=== PATIENT | female | born 1970 | race Caucasian/White ===

== ENCOUNTER → 2022-07-08 12:58 | Outpatient (BNVA) | payer OTHER, SELFPAY | PROVIDERS: Visit Provider Internal Medicine | DX: S43.402A Unspecified sprain of left shoulder joint, initial encounter (principal); V43.01XA Car driver injured in collision with sport utility vehicle in nontraffic accident, initial encounter | CPT/HCPCS: 73030; 99203 ==

== ENCOUNTER → 2022-07-21 13:50 | Outpatient (BNVA) | payer OTHER, SELFPAY | PROVIDERS: Visit Provider Physician Assistant Medical | DX: S43.402D Unspecified sprain of left shoulder joint, subsequent encounter (principal); V43 Car occupant injured in collision with car, pick-up truck or van | CPT/HCPCS: 99213 ==

== ENCOUNTER → 2022-07-29 13:23 | Outpatient (BNVA) | payer OTHER, SELFPAY | PROVIDERS: Visit Provider Physician Assistant Medical | DX: S43.402D Unspecified sprain of left shoulder joint, subsequent encounter (principal); V89.0XXD Person injured in unspecified motor-vehicle accident, nontraffic, subsequent encounter | CPT/HCPCS: 99213 ==

== ENCOUNTER → 2022-08-11 10:10 | Outpatient (BNVA) | payer OTHER, SELFPAY | PROVIDERS: Visit Provider Physician Assistant Medical | DX: S43.402D Unspecified sprain of left shoulder joint, subsequent encounter (principal); V43 Car occupant injured in collision with car, pick-up truck or van | CPT/HCPCS: 99213 ==

== ENCOUNTER → 2022-09-02 12:03 | Outpatient (BNVA) | payer OTHER, SELFPAY | PROVIDERS: PCP Internal Medicine; Visit Provider Physician Assistant Medical | DX: S43.402D Unspecified sprain of left shoulder joint, subsequent encounter (principal); V43 Car occupant injured in collision with car, pick-up truck or van | CPT/HCPCS: 99213 ==

== ENCOUNTER → 2022-09-25 11:07 | Outpatient (BNVA) | payer OTHER, SELFPAY | PROVIDERS: PCP Internal Medicine; Visit Provider Physician Assistant | DX: S43.402D Unspecified sprain of left shoulder joint, subsequent encounter (principal); V43 Car occupant injured in collision with car, pick-up truck or van | CPT/HCPCS: 99214 ==

== ENCOUNTER → 2022-10-16 08:58 | Outpatient (BNVA) | payer OTHER, SELFPAY | PROVIDERS: PCP Internal Medicine; Visit Provider Physician Assistant | DX: M25.512 Pain in left shoulder (principal) | CPT/HCPCS: 99213 ==

== ENCOUNTER 2022-10-18 10:44 | Outpatient (REF) | payer OTHER, SELFPAY ==
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
== END 2022-10-18 10:45 | disposition home or self-care (01) ==
LOC: HO.MRI 10:44
PROVIDERS: PCP Internal Medicine; Visit Provider Internal Medicine
DX: S46.012A Strain of muscle(s) and tendon(s) of the rotator cuff of left shoulder, initial encounter (principal)
CPT/HCPCS: 73221

== ENCOUNTER → 2022-10-23 09:36 | Outpatient (BNVA) | payer OTHER, SELFPAY | PROVIDERS: PCP Internal Medicine; Visit Provider Physician Assistant | DX: S43.402D Unspecified sprain of left shoulder joint, subsequent encounter (principal); V43 Car occupant injured in collision with car, pick-up truck or van | CPT/HCPCS: 99213 ==

== ENCOUNTER 2022-10-27 11:00 | Outpatient (RCR) | payer OTHER, SELFPAY ==
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
== END 2022-12-04 10:45 | disposition home or self-care (01) ==
LOC: HO.PT 11:00
PROVIDERS: PCP Internal Medicine; Visit Provider Physician Assistant Medical
DX: M25.512 Pain in left shoulder (principal)
CPT/HCPCS: 97035; 97110; 97140; 97161; 97164; 97530

== ENCOUNTER 2022-11-06 10:22 | Outpatient (AMB) | payer OTHER, SELFPAY ==
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
[2022-11-06 10:30] VITALS: BMI 26.5
== END 2022-11-06 11:02 | disposition home or self-care (01) ==
PROVIDERS: PCP Internal Medicine; Visit Provider Physician Assistant
DX: M75.102 Unspecified rotator cuff tear or rupture of left shoulder, not specified as traumatic (principal)
CPT/HCPCS: 99204

== ENCOUNTER → 2022-11-06 10:22 | Outpatient (BNVA) | payer OTHER, SELFPAY | PROVIDERS: PCP Internal Medicine; Visit Provider Physician Assistant | DX: S46.012A Strain of muscle(s) and tendon(s) of the rotator cuff of left shoulder, initial encounter (principal); V43.52XA Car driver injured in collision with other type car in traffic accident, initial encounter; Y93.F9 Activity, other caregiving; Y92.9 Unspecified place or not applicable; Y99.0 Civilian activity done for income or pay | CPT/HCPCS: 99202 ==

== ENCOUNTER 2022-12-03 09:42 | Day surgery (SDC) | payer OTHER, SELFPAY ==
[2022-12-01 11:13] VITALS: BMI 26.5
--- NOTE | 2022-12-02 09:18 | HO.ANESPROP2 ---
Documented by User: Maureen Lyman NP 12/02/22 09:22 HPI - Anesthesia Eval Consult details Narrative: 51yo F for Left Arthroscopic Rotator Cuff Repair PMFSH Active Problems Active Problems: All Active Problems (Updated 11/06/22 @ 10:46 by Khadijah Abrams) Left rotator cuff tear (Acute) Dog bite of left lower leg (Acute) Past Medical History Medical History Bilateral cataracts Social History Social History Alcohol intake: former Patient Tobacco Use Status: Former Tobacco user Use of substances other than those prescribed or required for medical reasons: No Are you DNR?: No Advance Directives: No Advance Directives Information Provided: Yes Current occupational status: employed 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, 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 Meds Allergies Allergy/AdvReac Type Severity Reaction Status Date / Time No Known Allergies Allergy Verified 11/06/22 10:28 Home Medications Medication Instructions Recorded Confirmed Last Taken Type clozapine 100 mg tablet 300 mg PO BEDTIME 11/26/21 12/03/22 Unknown History fluoxetine 20 mg capsule 40 mg PO QPM 11/26/21 12/03/22 Unknown History Exam Exam Date and Time: December 02, 2022 0918 Height,Weight and Vital Signs: Height 5 ft 2 in Weight 65.771 kg Assessment and Plan Assessment Anesthesia Assessment: Chart Reviewed Documented by User: Fide Mata MD 12/03/22 10:32 [facility] Past Medical History Medical History Bilateral cataracts Family History Family history of problems with anesthesia: No Surgical History History of Problems with Anesthesia: No Social History Social History Alcohol intake: former Patient Tobacco Use Status: Former Tobacco user Use of substances other than those prescribed or required for medical reasons: No Are you DNR?: No Advance Directives: No Advance Directives Information Provided: Yes Current occupational status: employed 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, 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 Meds Allergies Allergy/AdvReac Type Severity Reaction Status Date / Time No Known Allergies Allergy Verified 11/06/22 10:28 Home Medications Medication Instructions Recorded Confirmed Last Taken Type clozapine 100 mg tablet 300 mg PO BEDTIME 11/26/21 12/03/22 Unknown History fluoxetine 20 mg capsule 40 mg PO QPM 11/26/21 12/03/22 Unknown History Exam Airway Mallampati Class: II TM Dist: >3cm Neck ROM: Full Heart: rrr Lungs: cta Assessment and Plan Assessment Anesthesia Assessment: Anesthesia Plan Discussed Final Anesthetic Review Family History of Problems with Anesthesia: No History of Problems with Anesthesia: No NPO: Yes ASA Class: II Final Preanesthetic Review: No Changes in Pt Med Stat, Meds/Allgs Chart Reviewed, Consent Obtained/Reviewed and Anes Risks/Benef Reviewed Patient Risk: Intermediate Procedure Risk: Low Anesthetic Plan Anesthetic Plan: GA and Regional Block Disposition: Standard PACU
[2022-12-03] VITALS (9 sets, daily range): BP systolic 143–173; BP diastolic 93–105; PULSE 88–100; RESP 16–20; TEMP 36.3–36.4; O2SAT 95–100
[2022-12-03] MEDS: Lactated Ringers 1,000 ML 100 ML IVCONT (10:36)
--- NOTE | 2022-12-03 14:05 | P.BOP_ITS ---
Brief Operative Note Date of Service: 12/03/22 Pre-op diagnosis: Left rtc tear Post-op diagnosis: same Procedure: Left RTC repair Surgeon: Renny Moore MD Anesthesia: GETA and regional Was an Mechanical Integrity Specialist used for this Procedure?: No Estimated blood loss (mL): 25 IV fluids (mL): 1,000 Pathology: none sent Condition: stable Disposition: PACU
--- NOTE | 2022-12-08 12:39 | P.OP_ITS ---
Operative Note Operative Note Date of Service: 12/03/22 Narrative: Pre-op diagnosis: Left rtc tear Post-op diagnosis: same Procedure: Left RTC repair Surgeon: Renny Moore MD Anesthesia: GETA and regional Was an Strip Stamp Straightener used for this Procedure?: No Estimated blood loss (mL): 25 IV fluids (mL): 1,000 Pathology: none sent Condition: stable Disposition: PACU Procedure in detail: Patient was brought to the operating room and placed the the beach chair position. All bony prominences were well padded and the limb was prepped and draped in standard sterile fashion. A time out was called to identify proper site, proper procedure and proper surgeon. IV antibiotics per weight were administered. I began by making a posterolateral stab incision with a 15 blade. A blunt trochar was placed into the glenohumeral joint and I insufflated the joint with saline and a 30 degree arthroscope was placed. I established an outside- in anterior portal just distal to the biceps tendon. I then began my inspection of the glenohumeral joint. There was synovitis of the anterior interval. The biceps was intact and the labral anchor was intact. There was no tearing of the labrum circumferentially. The glenoid and humeral head cartilaginous surfaces were normal. There was a full thickness undersurface RTC tear. The subcapularis was intact. I then removed the trochar and entered the subacromial space. A direct lateral portal was then established and I performed a bursectomy. The cuff was then examined. There was a full thickness tear of the supra and infraspinatus without retraction. The tear was mobile. I then placed two medial row double loaded anchors and then brought the suture tape through the medial cuff. I then debrided the bare area down to bleeding bone and, using a cross bridge configuration, brought three limbs to each of two lateral 5.0 anchors. This re- approximated the cuff anatomy near anatomically. I then performed a 5 mm subacromial decompression. Once I was satisfied with the repair final images were captured and I removed all instrumentation. Portals were closed with nylon. Patient was placed in an abduction sling, extubated and brought to the recovery room in stable condition. There were no known complications.
== END 2022-12-03 15:02 | disposition home or self-care (01) ==
LOC: HO.SSS 09:43
PROVIDERS: PCP Internal Medicine; Visit Provider Orthopaedic Surgery
PROC: (CPT 29827; principal; 2022-12-03 12:10)
DX: M75.102 Unspecified rotator cuff tear or rupture of left shoulder, not specified as traumatic (principal); Z79.899 Other long term (current) drug therapy; Z87.891 Personal history of nicotine dependence; V89.2XXA Person injured in unspecified motor-vehicle accident, traffic, initial encounter; Y93.89 Activity, other specified; Y92.410 Unspecified street and highway as the place of occurrence of the external cause; Y99.0 Civilian activity done for income or pay
CPT/HCPCS: 29827; 29826; C1713; J0171; J0690; J1100; J2250; J2371; J2405

== ENCOUNTER → 2022-12-03 09:42 | Outpatient (BNV) | payer OTHER, SELFPAY | PROVIDERS: PCP Internal Medicine; Visit Provider Orthopaedic Surgery | DX: S46.011A Strain of muscle(s) and tendon(s) of the rotator cuff of right shoulder, initial encounter (principal) | CPT/HCPCS: 29826; 29827 ==

== ENCOUNTER 2022-12-12 10:19 | Outpatient (AMB) | payer OTHER, SELFPAY ==
--- NOTE | 2022-12-12 10:31 | MHC.OFFVIS ---
Intake Intake Visit Reasons: PO - Left Shoulder w/ RTC Repair 12/03/22 Intake Note: Oxana is a 51 year old left hand dominant female who presents today for her post op appointment s/p Left Shoulder w/ RTC Repair 12/03/22 NE. Patient reports she is doing well, no pain or discomfort. Allergies No Known Allergies Allergy (Verified 12/12/22 10:32) HPI PO - Left Shoulder w/ RTC Repair 12/03/22 HPI Details 51-year-old left hand dominant female who presents in the office today 1 week status post left shoulder rotator cuff repair, which was performed on 12/03/[address] Moore. The patient reports she is doing well with no pain or discomfort while in the office today. She confirms coming out of sling 3 times a day to allow the shoulder to hang. She states she has been taking the Tylenol. She reports she has not had to take the oxycodone. She is accompanied in the office today by her . 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 Sutures intact. No surrounding erythema or drainage. No signs of infection. Forward flexion and abduction to 45 degrees. External rotation to neutral. NVI. Assessment & Plan Assessment & Plan (1) S/P left rotator cuff repair: Comment: 12/03/2022 NE Code(s): Z98.890 - Other specified postprocedural states Plan Ms. Jones is a 51-year-old left hand dominant female who presents in the office today 1 week status post left shoulder rotator cuff repair, which was performed on 12/03/[address] Moore. The patient reports she is doing well with no pain or discomfort while in the office today. She confirms coming out of sling 3 times a day to allow the shoulder to hang. She states she has been taking the Tylenol. She reports she has not had to take the oxycodone. She is accompanied in the office today by her . Sutures were removed and steri-stripes were applied. The patient reports she started physical therapy on 12/16/2022. I educated her she will work on gentle ROM. Follow up will be in 4 weeks, or sooner if needed. Patient Instructions: Scribed for Rere Roberto PA-C by Khadijah Abrams medical office representative, on 12/12/2022 at 10:23 am, EST. Coding Level of Care Code Global (50031) Diagnoses S/P left rotator cuff repair Z98.890
== END 2022-12-12 11:21 | disposition home or self-care (01) ==
PROVIDERS: PCP Internal Medicine; Visit Provider Physician Assistant
DX: Z98.890 Other specified postprocedural states (principal)
CPT/HCPCS: 99024

== ENCOUNTER → 2022-12-12 10:19 | Outpatient (BNVA) | payer OTHER, SELFPAY | PROVIDERS: PCP Internal Medicine; Visit Provider Physician Assistant ==

== ENCOUNTER 2022-12-18 09:11 | Outpatient (AMB) | payer OTHER, SELFPAY ==
--- NOTE | 2022-12-18 09:13 | A.OFFVIS_ITS ---
Intake Intake Visit Reasons: s/p 12/03/22 LT RTC increased redness at op site Intake Note: Oxana a 51 year old female who presents today for a post operative wound check s/p left RTC on 12/03/22. Patient reports she is doing well, mild pain. She has redness at her operation site. Allergies No Known Allergies Allergy (Verified 12/18/22 09:18) HPI s/p 12/03/22 LT RTC increased redness at op site HPI Details 51-year-old female who returns to [facility] for post-op wound check for left RTC repair, 12/03/22. She states she has mild pain and c/o redness at the operation site. She is doing well otherwise and has no concerns today. 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 There is some erythema around the portal side along the distal clavicle, however there is no open wound or drainage, no tenderness to palpation. NVI. Assessment & Plan Assessment & Plan (1) S/P left rotator cuff repair: Comment: 12/03/2022 [place] Code(s): Z98.890 - Other specified postprocedural states Plan No evidence of infection at this time. If worsening redness or pain develops, she will contact the office for another evaluation, otherwise she will continue with physical therapy as planned and follow-up as scheduled for routine post-op appointment. Patient Instructions: Scribed for Vicente Hernandez PA-C, by Petar Benedict medical staff services manager, on 12/18/2022 at 9:15 AM EST. I, Vicente Hernandez PA-C, have personally reviewed and agree with the information entered by the scribe. Coding Level of Care Code Global (32197) Diagnoses S/P left rotator cuff repair Z98.890
== END 2022-12-18 09:35 | disposition home or self-care (01) ==
PROVIDERS: PCP Internal Medicine; Visit Provider Physician Assistant
DX: Z98.890 Other specified postprocedural states (principal)
CPT/HCPCS: 99024

== ENCOUNTER → 2022-12-18 09:11 | Outpatient (BNVA) | payer OTHER, SELFPAY | PROVIDERS: PCP Internal Medicine; Visit Provider Physician Assistant ==

== ENCOUNTER 2023-01-09 10:21 | Outpatient (AMB) | payer OTHER, SELFPAY ==
--- NOTE | 2023-01-09 10:25 | A.OFFVIS_ITS ---
Intake Intake Visit Reasons: PO - Left Shoulder w/ RTC Repair 12/03/22 Intake Note: Oxana a 51 year old female who presents today for a post operative wound check s/p left RTC on 12/03/22. Patient reports having pain in her shoulder. Physical therapy is going well and showing improvements. Allergies No Known Allergies Allergy (Verified 01/09/23 10:26) HPI PO - Left Shoulder w/ RTC Repair 12/03/22 HPI Details 52-year-old female who presents in the o ffice today 1 month status post left shoulder rotator cuff repair, which was performed on 12/03/[address] Moore. The patient reports pain in her shoulder. She states physical therapy is going well and showing improvement. 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 No signs of infection. Forward flexion and abduction 70 de grees. Able to reach back pocket. NVI. Assessment & Plan Assessment & Plan (1) S/P left rotator cuff repair: Comment: 12/03/2022 NE Code(s): Z98.890 - Other specified postprocedural states Plan Ms. Jones is a 52-year-old female who presents in the office today 1 month status post left shoulder rotator cuff repair, which was performed on 12/03/[address] Moore. The patient reports pain in her shoulder. She states physical therapy is going well and showing improvement. The patient was placed back into the sling while in the office today. She will discontinue the use of the sling on Thursday01/14/2023. She will continue to work with physical therapy. Follow up will be in 6 weeks, or sooner if needed. Patient Instructions: Scribed for Rere Roberto PA-C by Khadijah Abrams medical program specialist, on 01/09/2023 at 10:23 am, EST. Coding Level of Care Code Global (53110) Diagnoses S/P left rotator cuff repair Z98.890
== END 2023-01-09 10:42 | disposition home or self-care (01) ==
PROVIDERS: PCP Internal Medicine; Visit Provider Physician Assistant
DX: Z98.890 Other specified postprocedural states (principal)
CPT/HCPCS: 99024

== ENCOUNTER → 2023-01-09 10:21 | Outpatient (BNVA) | payer OTHER, SELFPAY | PROVIDERS: PCP Internal Medicine; Visit Provider Physician Assistant ==

== ENCOUNTER 2023-02-20 09:51 | Outpatient (AMB) | payer OTHER, SELFPAY ==
--- NOTE | 2023-02-20 10:00 | A.OFFVIS_ITS ---
Intake Intake Visit Reasons: OV-Left Shoulder w/ RTC Repair 12/03/22 Intake Note: Oxana a 51 year old female who presents today for a post operative wound check s/p left RTC on 12/03/22. Patient reports she is doing okay still having pain. She states that PT is going well and she has been doing the exercises at home too. Allergies No Known Allergies Allergy (Verified 02/20/23 10:05) HPI OV-Left Shoulder w/ RTC Repair 12/03/22 HPI Details 52-year-old female who presents in the o ffice today 2 month status post left shoulder rotator cuff repair, which was performed on 12/03/[address] Moore. The patient reports she is doing okay, but still has some pain. She states physical therapy is going well and she has been working on her exercises at home too. 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 External rotation to 45 degrees. Able to reach T12. NVI. Assessment & Plan Assessment & Plan (1) S/P left rotator cuff repair: Comment: 12/03/2022 NE Code(s): Z98.890 - Other specified postprocedural states Plan Ms. Jones is a 52-year-old female who presents in the office today 2 month status post left shoulder rotator cuff repair, which was performed on 12/03/[address] Moore. The patient reports she is doing okay, but still has some pain. She states physical therapy is going well and she has been working on her exercises at home too. The patient will continue to work with physical therapy. She will remain out of work until follow up. Follow up will be in 6 weeks, or sooner if needed. Patient Instructions: Scribed for Rere Roberto PA-C by Khadijah Abrams medical physics professor, on 02/20/2023 at 9:53 am, EST. Coding Level of Care Code Global (92760) Diagnoses S/P left rotator cuff repair Z98.890
== END 2023-02-20 10:43 | disposition home or self-care (01) ==
PROVIDERS: PCP Internal Medicine; Visit Provider Physician Assistant
DX: Z98.890 Other specified postprocedural states (principal)
CPT/HCPCS: 99024

== ENCOUNTER → 2023-02-20 09:51 | Outpatient (BNVA) | payer OTHER, SELFPAY | PROVIDERS: PCP Internal Medicine; Visit Provider Physician Assistant ==

== ENCOUNTER 2023-04-03 09:47 | Outpatient (AMB) | payer OTHER, SELFPAY ==
--- NOTE | 2023-04-03 09:53 | A.OFFVIS_ITS ---
Intake Intake Visit Reasons: OV-Left Shoulder w/ RTC Repair 12/03/22 Intake Note: Oxana is a 51 year old female who presents today for a follow up s/p left RTC on 12/03/22. Patient reports she is doing well, however she is feeling pain after PT and home exercises. Allergies No Known Allergies Allergy (Verified 04/03/23 09:59) HPI OV-Left Shoulder w/ RTC Repair 12/03/22 HPI Details 52-year-old female who presents in the o ffice today 2 month status post left shoulder rotator cuff repair, which was performed on 12/03/[address] Moore. I last saw the patient in the office on 02/20/2023 at which time she was asked to continue to work with physical therapy and she was to remain out of work until follow up. While in the office today the patient reports she is overall doing well. She states she feels pain after physical therapy and home exercises. 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 External rotation to 45 degrees. Able to reach T12. NVI. Assessment & Plan Assessment & Plan (1) S/P left rotator cuff repair: Comment: 12/03/2022 NE Code(s): Z98.890 - Other specified postprocedural states Plan Ms. Jones is a 52-year-old female who presents in the office today 2 month status post left shoulder rotator cuff repair, which was performed on 12/03/[address] Moore. I last saw the patient in the office on 02/20/2023 at which time she was asked to continue to work with physical therapy and she was to remain out of work until follow up. While in the office today the patient reports she is overall doing well. She states she feels pain after physical therapy and home exercises. The patient will continue to work with physical therapy and begin to transition to the strengthening program to work on work stimulation activities which include lifitng. Once she feels comfortable with the work stimulation activities she will contact the office and I will give her a return to work note with any restrictions she may need. Follow up will be in 6-8 weeks, or sooner if needed. Patient Instructions: Scribed for Rere Roberto PA-C by Khadijah Abrams medical care evaluation specialist, on 04/03/2023 at 9:49 am, EST. Coding Level of Care Code Est Pt Level 3 (33378) Diagnoses S/P left rotator cuff repair Z98.890
== END 2023-04-03 10:12 | disposition home or self-care (01) ==
PROVIDERS: PCP Internal Medicine; Visit Provider Physician Assistant
DX: S46.011D Strain of muscle(s) and tendon(s) of the rotator cuff of right shoulder, subsequent encounter (principal)
CPT/HCPCS: 99213

== ENCOUNTER → 2023-04-03 09:47 | Outpatient (BNVA) | payer OTHER, SELFPAY | PROVIDERS: PCP Internal Medicine; Visit Provider Physician Assistant | DX: Z47.89 Encounter for other orthopedic aftercare (principal) | CPT/HCPCS: 99212 ==

== ENCOUNTER 2023-04-28 09:00 | Outpatient (RCR) | payer OTHER, SELFPAY ==
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
--- NOTE | 2023-06-24 10:50 | MHC.PT.DC ---
[facility] [place] [facility] [place] [facility] [place] Office [address] Jeremiah Wilson [address] [phone] F: [phone] F: [phone] F: [phone] F: [phone] Physical Therapy Discharge Report Diagnosis: L RTC Repair 12/03/22 Date of Surgery: 12/03/22 Date of Evaluation: 12/16/22 Date of Discharge: 06/24/23 Treatments to Date: 27 Cancellations to Date: 1 No Shows to Date: 0 Discharge Status: Achieved Goals Improved Function Independent with HEP Discharge Summary: Pt has met goals at this time and has been working toward increasing lifting tolerance for RTW. Pt with improvement in functional tolerance without fatigue and significantly decreased compensation since start of PT. D/C at this time to I with HEP pt will f/u with WC and ortho in regards to RTW. Electronically signed by: Laura Smith PT Please sign and return to therapist. Thank you for your referral.
== END 2023-06-24 10:51 | disposition home or self-care (01) ==
LOC: HO.PT 09:00
PROVIDERS: PCP Internal Medicine; Visit Provider Physician Assistant
DX: M75.102 Unspecified rotator cuff tear or rupture of left shoulder, not specified as traumatic (principal)
CPT/HCPCS: 97110; 97140; 97162; 97530

== ENCOUNTER 2023-05-19 08:00 | Outpatient (AMB) | payer OTHER, SELFPAY ==
--- NOTE | 2023-05-19 08:07 | MHC.OFFVIS ---
Intake Vital Signs 05/19/23 08:10 Height 5 ft 2 in Weight 150 lb BMI 27.4 Handedness Left Intake Visit Reasons: OV-Left Shoulder w/ RTC Repair 12/03/22 Intake Note: Oaxna is a 51 year old female who presents today for a follow up s/p left RTC on 12/03/22. Patient reports still feeling soreness on her left shoulder. She states that PT went well she is showing improvements on her lifting/strengthening. No other concerns for today. Allergies No Known Allergies Allergy (Verified 05/19/23 08:07) HPI OV-Left Shoulder w/ RTC Repair 12/03/22 HPI Details 52-year-old female who presents in the office today 5 month status post left shoulder rotator cuff repair, which was performed on 12/03/[address] Moore. I last saw the patient in the office on 04/03/2023 where she encouraged to continue to work with physical therapy and transition to the strengthening program. While in the office today she reports having soreness in the left shoulder. She states physical therapy went well and she is showing signs of improvement on lifting and strengthening. 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 External rotation to 45 degrees. Able to reach T12. NVI. Assessment & Plan Assessment & Plan (1) S/P left rotator cuff repair: Comment: 12/03/2022 NE Code(s): Z98.890 - Other specified postprocedural states Plan Ms. Jones is a 52-year-old female who presents in the office today 5 month status post left shoulder rotator cuff repair, which was performed on 12/03/[address] Moore. I last saw the patient in the office on 04/03/2023 where she encouraged to continue to work with physical therapy and transition to the strengthening program. While in the office today she reports having soreness in the left shoulder. She states physical therapy went well and she is showing signs of improvement on lifting and strengthening. I would like for the patient to resume physical therapy to work on strengthening, work conditioning and gradual weight training with a goal of being able to lift 30 pound bag, as this would stimulate at 30 pound bag at work. She was given an out of work note until her follow up. Follow up will be in 6 weeks, or sooner if needed. Orders: Orders PT Evaluation and Treatment Today Z98.890 - Other specified postprocedural states Patient Instructions: Scribed by Khadijah Abrams remote medical coder, for Rere Roberto PA-C on 05/19/2023 at 8:00 am, EST. Coding Level of Care Code Est Pt Level 3 (46048) Diagnoses S/P left rotator cuff repair Z98.890
[2023-05-19 08:10] VITALS: BMI 27.4
== END 2023-05-19 08:32 | disposition home or self-care (01) ==
PROVIDERS: PCP Internal Medicine; Visit Provider Physician Assistant
DX: S46.011D Strain of muscle(s) and tendon(s) of the rotator cuff of right shoulder, subsequent encounter (principal); Z04.2 Encounter for examination and observation following work accident
CPT/HCPCS: 99213

== ENCOUNTER → 2023-05-19 08:00 | Outpatient (BNVA) | payer OTHER, SELFPAY | PROVIDERS: PCP Internal Medicine; Visit Provider Physician Assistant | DX: Z47.89 Encounter for other orthopedic aftercare (principal) | CPT/HCPCS: 99212 ==

== ENCOUNTER 2023-06-30 12:45 | Outpatient (AMB) | payer OTHER, SELFPAY ==
--- NOTE | 2023-06-30 12:47 | MHC.OFFVIS ---
Intake Intake Visit Reasons: OV-Left Shoulder w/ RTC Repair 12/03/22 Intake Note: Oxana is a 52 year old female who presents today for a follow up s/p left RTC on 12/03/22. Patient reports - . She states that her strength is better since she has been going to physical therapy. Allergies No Known Allergies Allergy (Verified 06/30/23 12:48) HPI OV-Left Shoulder w/ RTC Repair 12/03/22 HPI Details 52-year-old female who presents in the office today 7 month status post left shoulder rotator cuff repair, which was performed on 12/03/[address] Moore. I last saw the patient in the office on 05/19/2023 at which time I encouraged her to resume physical therapy to work on strengthening. She was given an out of work note until her follow up. While in the office today the patient reports her strength has improved since attending physical therapy. 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 NVI. Assessment & Plan Assessment & Plan (1) S/P left rotator cuff repair: Comment: 12/03/2022 NE Code(s): Z98.890 - Other specified postprocedural states Plan Ms. Jones is a 52-year-old female who presents in the office today 7 month status post left shoulder rotator cuff repair, which was performed on 12/03/[address] Moore. I last saw the patient in the office on 05/19/2023 at which time I encouraged her to resume physical therapy to work on strengthening. She was given an out of work note until her follow up. While in the office today the patient reports her strength has improved since attending physical therapy. 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 A note was provided for her to do so beginning on Thursday07/06/2023. Follow up will be PRN, or sooner if needed. Patient Instructions: Scribed by Khadijah Abrams medical technician assistant, for Rere Roberto PA-C on 06/30/2023 at 12:48 pm, EST. Coding Level of Care Code Est Pt Level 3 (61262) Diagnoses S/P left rotator cuff repair Z98.890
== END 2023-06-30 13:25 | disposition home or self-care (01) ==
PROVIDERS: PCP Internal Medicine; Visit Provider Physician Assistant
DX: S46.011D Strain of muscle(s) and tendon(s) of the rotator cuff of right shoulder, subsequent encounter (principal)
CPT/HCPCS: 99212

== ENCOUNTER → 2023-06-30 12:45 | Outpatient (BNVA) | payer OTHER, SELFPAY | PROVIDERS: PCP Internal Medicine; Visit Provider Physician Assistant | DX: Z47.89 Encounter for other orthopedic aftercare (principal) | CPT/HCPCS: 99212 ==

== ENCOUNTER 2023-10-01 10:09 | Emergency (ER) | payer OTHER, SELFPAY ==
--- NOTE | 2023-10-01 | ECG_ITS ---
Test Reason : chest pain Blood Pressure : / mmHG Vent. Rate : 096 BPM Atrial Rate : 096 BPM P-R Int : 138 ms QRS Dur : 078 ms QT Int : 360 ms P-R-T Axes : 039 050 048 degrees QTc Int : 454 ms Normal sinus rhythm Normal ECG No previous ECGs available Referred By: Generic ED Physician Electronically Signed By:Riley Will
--- NOTE | ~2023-10-01 | XR_ITS ---
EXAMINATION: XR CHEST CLINICAL INFORMATION: Chest pain COMPARISON: Left shoulder radiographs 07/08/2022 TECHNIQUE: 2 views of the chest were obtained. FINDINGS: Aside from some mild degenerative changes in the spine, no significant abnormality is noted involving the heart, lungs, mediastinum, bony thorax or soft tissues. There is a radiopaque structure overlying the left shoulder which was not present on the prior exam which has the appearance of a suture anchor. XR/XR chest 2V IMPRESSION: 1. No acute intrathoracic disease. 2. Suture anchor overlying the left shoulder.
[2023-10-01 10:34] VITALS: BP 129/84; PULSE 96; RESP 16; TEMP 36.1; O2SAT 98; BMI 26.9
[2023-10-01 11:15] LABS: MANUAL DIFF FLAG NO
[2023-10-01 11:17] LABS: Basophils Absolute Auto 0.1 X10*3/uL (0.0-0.2); Basophils Percent Auto 0.8 % (0-2); Eosinophils Absolute Auto 0.2 X10*3/uL (0.0-0.4); Eosinophils Percent Auto 2.5 % (0-4); Hematocrit 44.3 % (37.0-47.0); Hemoglobin 15.2 g/dl (12.0-16.0); Imm Gran Abs Auto 0.02 X10*3/uL (0.00-0.03); Imm Gran Pct Auto 0.3 % (0.0-0.4); Lymphocytes Absolute Auto 1.3 X10*3/uL (1.2-4.9); Lymphocytes Percent Auto 21.3 % (20-40); Mean Corpuscular HGB Conc 34.3 g/dl (31.0-35.0); Mean Corpuscular Volume 81.6 fL (80.0-98.0); Mean Platelet Volume 9.1 fL (9.4-12.3); Monocytes Absolute Auto 0.4 X10*3/uL (0.1-1.2); Monocytes Percent Auto 6.3 % (2-11); Neutrophils Absolute Auto 4.3 x10*3/uL (2.0-8.3); Neutrophils Percent Auto 68.8 % (45-73); Platelet Count 256 X10*3/uL (160-400); Red Blood Count 5.43 X10*6/uL (4.20-5.50); Red Cell Distribution Width 13.7 % (11.0-16.0); White Blood Count 6.3 X10*3/uL (4.8-10.8)
[2023-10-01 11:30] LABS: Alanine Aminotransferase 15 U/L (0-31); Albumin Level 4.2 g/dL (3.5-5.0); Alkaline Phosphatase 109 U/L (39-117); Anion Gap 11 (12-20); Aspartate Amino Transferase 16 U/L (5-31); Bilirubin Total 0.4 mg/dL (0.0-1.0); Blood Urea Nitrogen 9 mg/dL (9-16); Calcium 9.3 mg/dL (8.4-10.2); Carbon Dioxide 26 mmol/L (22-29); Chloride 108 mmol/L (96-108); Creatinine Clr Calc Pharmacy 71.1; Estimated Glomerular Filt Rate > 60; Glucose Random 99 mg/dL (60-115); Potassium 4.1 mmol/L (3.3-5.1); Sodium 141 mmol/L (135-145)
--- NOTE | 2023-10-01 11:32 | ED_ITS ---
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 No associated n/v dyspnea it is worse with movements no fevers or cough, not worse with deep breaths MD complaint: chest pain Onset (ago): day(s) (5) Timing of current episode: episodic Prior episodes: No Onset: other (movement) Pain location: right chest Pain radiation: none Severity: mild Quality: tightness Relieving factors: rest Exacerbating factors: palpation and movement Context: trauma/injury (possible at work) Treatment prior to arrival: none Related Data Home Medications ?Medication ?Instructions ?Recorded ?Confirmed clozapine 100 mg tablet 300 mg PO BEDTIME 11/26/21 12/03/22 Previous Rx's ?Medication ?Instructions ?Recorded docusate sodium 100 mg capsule 100 mg PO DAILY #30 caps 10/01/23 ([facility]) Allergies Allergy/AdvReac Type Severity Reaction Status Date / Time No Known Allergies Allergy Verified 10/01/23 10:36 Review of Systems 2 Review of Systems: Constitutional : No Weight loss, No Fever, No Chills ENT/Mouth : No sore throat, No Rhinorrhea Eyes: No Eye Pain, No Swelling Cardiovascular : pos Chest Pain, no SOB, no Dyspnea on Exertion, No Orthopnea, No Edema, No Palpitations Respiratory : No Cough, No Sputum Gastrointestinal : no Nausea, No Vomiting, No Diarrhea, No abdominal Pain, No Hematochezia, No Melena Genitourinary : No Dysuria, No Urinary Frequency Musculoskeletal : No joint pain, No Myalgias, No Joint Swelling Skin : No Skin Lesions, No rash Neuro : No Weakness, No Numbness, No Dizziness, No Headache Psych : No Anxiety/Panic, No Depression All other systems reviewed and are negative [facility] Past Medical History Attestation statement: The following information was validated with the patient. 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 Oriented X3. No acute distress. Eyes: Pupils equal, round and reactive to light. ENT: Pharynx normal. Neck: Normal inspection. Neck supple. CVS: Normal heart rate and rhythm. Pulses normal. Chest: ttp along R anterior chest wall reproduces pain no rash Respiratory: No respiratory distress. Breath sounds normal. Abdomen: Soft and nontender. Skin: Skin warm and dry. Normal skin color. Normal skin turgor. Extremities: No lower extremity edema. No calf ttp Neuro: Oriented X 3. No motor deficit. No sensory deficit. Medical Decision Making Medical Decision Making [facility] Narrative: 52 yo female with PMH of bipolar disorder, constipation here with c/o atypical reproduceable CWP at this time will need troponin x 1, EKG, CXR not pleuritic no hypoxia no signs of DVT or symptoms suggestive of VTE. Seems MSK in nature. She has chronic constipation and asked me to help her with bowel regimen no abdominal pain or signs of SBO will start on stool softeners and probiotic OTC Differential Diagnosis Differential Diagnoses: The differential diagnosis associated with the presentation includes MSK pain, atypical chest pain Admission/Observation Consideration of admission/observation: Escalation of care including admission/observation considered negative workup atypical symptoms stable for DC Lab Data [facility] Lab Attestation statement: I reviewed the patient's lab results. 10/01/23 11:09 10/01/23 11:09 Labs: Lab Results 10/01/23 Range/Units 11:09 WBC 6.3 (4.8-10.8) X10*3/uL RBC 5.43 (4.20-5.50) X10*6/uL Hgb 15.2 (12.0-16.0) g/dl Hct 44.3 (37.0-47.0) % MCV 81.6 (80.0-98.0) fL MCH 28.0 (27.0-33.0) pg MCHC 34.3 (31.0-35.0) g/dl RDW 13.7 (11.0-16.0) % Plt Count 256 (160-400) X10*3/uL MPV 9.1 L (9.4-12.3) fL Immature Gran % (Auto) 0.3 (0.0-0.4) % Neut % (Auto) 68.8 (45-73) % Lymph % (Auto) 21.3 (20-40) % [place] % (Auto) 6.3 (2-11) % Eos % (Auto) 2.5 (0-4) % Baso % (Auto) 0.8 (0-2) % Lymph # (Auto) 1.3 (1.2-4.9) X10*3/uL [place] # (Auto) 0.4 (0.1-1.2) X10*3/uL Eos # (Auto) 0.2 (0.0-0.4) X10*3/uL Baso # (Auto) 0.1 (0.0-0.2) X10*3/uL Abs Immat Gran (auto) 0.02 (0.00-0.03) X10*3/uL Absolute Neuts (auto) 4.3 (2.0-8.3) x10*3/uL Absolute Nucleated RBC 0.000 (0.0-0.012) X10*3/uL Nucleated RBC % (auto) 0.0 (0.0-0.2) /100WBC Sodium 141 (135-145) mmol/L Potassium 4.1 (3.3-5.1) mmol/L Chloride 108 (96-108) mmol/L Carbon Dioxide 26 (22-29) mmol/L Anion Gap 11 L (12-20) BUN 9 (9-16) mg/dL Creatinine 0.81 (0.5-1.4) mg/dL Estim Creat Clear Calc 71.1 Estimated GFR > 60 Random Glucose 99 (60-115) mg/dL Calcium 9.3 (8.4-10.2) mg/dL Total Bilirubin 0.4 (0.0-1.0) mg/dL AST 16 (5-31) U/L ALT 15 (0-31) U/L Alkaline Phosphatase 109 (39-117) U/L Troponin I High Sens < 2.7 (<3.5-17.0) ng/L Total Protein 7.0 (6.5-8.0) g/dL Albumin 4.2 (3.5-5.0) g/dL Independent Interpretation I performed an independent interpretation of an: EKG and Plain X-Ray (normal ) Interpretation: Rate: 96 Rhythm: NSR [place]: normal Normal P waves. Normal RIGO. Normal QRS complex. ST T wave : normal no TASH qTC: 454 prior studies: no acute ischemia The study has been interpreted contemporaneously by me. . Radiology Impression Discussion of test interpretation with radiology: I have reviewed the radiologist's reading. Independent Historian Clinical information obtained from an independent historian. History obtained from or confirmed by: Other (family) Prescription Management I considered prescription management with: Other Discharge Plan Discharge Clinical Impression: Atypical chest pain Patient Disposition: Home, Self-Care Instructions: Chest Pain (ED), Chest Wall Pain (ED) Additional Instructions: labs, EKG, chest xray, blood test for heart are reassuring. return for any worsening symptoms or concerns can take prateek probiotic or any gummy probiotic over the counter to help with regular bowel movements. follow up with your doctor as needed limit lifting for the next 1 week Prescriptions: New docusate sodium [Col-Rite] 100 mg capsule 100 mg PO DAILY Qty: 30 1RF No Action clozapine 100 mg tablet 300 mg PO BEDTIME Print Language: Tajik
[2023-10-01 11:37] LABS: Troponin-I High Sensitivity < 2.7 ng/L (<3.5-17.0)
[2023-10-01 11:55] VITALS: BP 129/84; PULSE 96; RESP 16; TEMP 36.1; O2SAT 98
== END 2023-10-01 12:20 | disposition home or self-care (01) ==
PROVIDERS: Emergency Provider Emergency Medicine; PCP Internal Medicine
DX: R07.89 Other chest pain (principal)
CPT/HCPCS: 36415; 71046; 80053; 84484; 85025; 93005; 99283; 99284

== ENCOUNTER → 2023-10-01 10:15 | Outpatient (BNV) | payer OTHER, SELFPAY | PROVIDERS: Emergency Provider Emergency Medicine; PCP Internal Medicine; Visit Provider Internal Medicine Cardiovascular Disease | DX: R07.9 Chest pain, unspecified (principal) | CPT/HCPCS: 93010 ==